=== PATIENT | female | born 1980 | race Hispanic/Latino ===

== ENCOUNTER 2020-11-06 12:15 | Outpatient (CLI) | payer BC ==
[~2020-11-06 12:15] MED LIST: Magnevist 469MG/ML 20 ML VIAL ONE
== END 2020-11-06 12:16 | disposition home or self-care (01) ==
LOC: BICMRI 12:15
PROVIDERS: ATTEND Psychiatry & Neurology Neurology
DX: R20.2 Paresthesia of skin (principal)
CPT/HCPCS: 70553; 72141

== ENCOUNTER 2021-11-23 15:24 | Outpatient (CLI) | payer BC | END 2021-11-23 15:25 | disposition home or self-care (01) | LOC: BICULT 15:24 | PROVIDERS: ATTEND Urology | DX: R10.9 Unspecified abdominal pain (principal) | CPT/HCPCS: 76770 ==

== ENCOUNTER 2022-03-12 12:29 | Outpatient (CLI) | payer BC ==
[~2022-03-12 12:29] MED LIST changes: +Iopamidol 370 76% 100 ML VIAL ONE; -Magnevist 469MG/ML 20 ML VIAL ONE
== END 2022-03-12 12:30 | disposition home or self-care (01) ==
LOC: BICCT 12:29
PROVIDERS: ATTEND Nurse Practitioner Family
DX: R10.31 Right lower quadrant pain (principal)
CPT/HCPCS: 74178; Q9967

== ENCOUNTER 2022-12-23 17:00 | Outpatient (CLI) | payer BC | END 2022-12-23 17:01 | disposition home or self-care (01) | LOC: SLEEPLAB 17:00 | PROVIDERS: ATTEND Nurse Practitioner Family | DX: G47.33 Obstructive sleep apnea (adult) (pediatric) (principal); R53.83 Other fatigue; R06.83 Snoring | CPT/HCPCS: 95800 ==

== ENCOUNTER 2023-02-12 11:16 | Outpatient (CLI) | payer BC ==
[2023-02-12 13:28] LABS: Bilirubin Neg (Negative); Blood, Urine Negative (Negative); Clarity Clear (Clear); Glucose, Urine (Dipstick) Normal (Negative); Ketone, Urine 5 mg/dL (Negative); Leukocyte Negative (Negative); Nitrite Negative (Negative); Protein, Urine (Dipstick) Negative (Neg-Trace); Specific Gravity, Urine 1.015 (1.005-1.030); Urobilinogen Normal mg/dL (Less than 2)
[2023-02-12 13:34] LABS: Hematocrit 41.1 % (34.9-44.5); Hemoglobin 13.5 g/dL (12.0-15.5); Mean Corpuscular HGB CONC 32.8 g/dL (32.0-36.0); Mean Corpuscular Hemoglobin 29.4 pg (27.0-33.0); Mean Corpuscular Volume 89.5 fl (81.6-98.3); Mean Platelet Volume 8.6 fl (7.4-10.4); Platelet Count 512 10x3/uL (150-450); RBC Distribution Width 13.8 % (11.5-14.5); Red Blood Cell (RBC) Count 4.59 10x6/uL (3.90-5.03); White Blood Cell (WBC) Count 7.4 10x3/uL (3.5-10.5)
[2023-02-12 13:43] LABS: INR-International Normal Ratio 0.9; PTT 28.6 sec (22.0-33.0)
[2023-02-12 13:49] LABS: Anion Gap 11 mmol/L (10-20); BUN (Urea Nitrogen) 9 mg/dL (7.0-18.7); Calc. Creatinine Clearance 0 mL/min (70-130); Calcium 9.1 mg/dL (7.8-10.44); Carbon Dioxide 26 mmol/L (22-29); Chloride 103 mmol/L (98-107); Estimated GFR 109; Glucose 86 mg/dL (70-105); Potassium 3.9 mmol/L (3.5-5.1); Sodium 136 mmol/L (136-145)
[2023-02-12 13:54] LABS: Bacteria/HPF Rare-Few HPF (None Seen); Mucous/LPF Rare LPF (<2+); RBC/HPF None Seen HPF (0-3); Squamous Epithelial 0-3 HPF (0-3); WBC/HPF 0-3 HPF (0-3)
== END 2023-02-12 11:17 | disposition home or self-care (01) ==
LOC: LABBT 11:16
PROVIDERS: ATTEND Urology
DX: Z01.818 Encounter for other preprocedural examination (principal); N39.46 Mixed incontinence; N35.92 Unspecified urethral stricture, female; R35.1 Nocturia
CPT/HCPCS: 71046; 80048; 81001; 85027; 85610; 85730; 87086; 93005; 93010

== ENCOUNTER 2023-02-26 06:51 | Day surgery (SDC) | payer BC ==
[2023-02-25 10:10] VITALS: BMI 25.8
[2023-02-26] MEDS ORDERED: LevoFLOXacin D5W 500 mg (100 mL) BAG ONE (07:50)
[2023-02-26] MEDS ORDERED: Midazolam HCl 2 mg/2 ml Vial ONE (08:24)
[2023-02-26] MEDS ORDERED: PROPOFOL 20 ML ONE (08:24)
[2023-02-26] MEDS ORDERED: fentaNYL 50 mcg/mL 1 mL Vial ONE (08:24)
[2023-02-26] MEDS ORDERED: Ondansetron PF 4 MG/2 ML Vial ONE (08:54)
[2023-02-26] MEDS ORDERED: Dexamethasone 4 mg/ml Vial ONE (08:54)
[2023-02-26] MEDS ORDERED: PHENYLEPHRINE-NS 100 MCG/ML 10 ML SYRINGE ONE (08:56)
[2023-02-26] MEDS ORDERED: Phenazopyridine HCl 100 MG TAB ONE ×2 (09:56→09:57)
== END 2023-02-26 11:36 | disposition home or self-care (01) ==
LOC: SDC 06:51
PROVIDERS: ATTEND Urology
PROC: 0TVC8ZZ Restriction of Bladder Neck, Via Natural or Artificial Opening Endoscopic (ICD-10-PCS; principal; 2023-02-26)
DX: N39.46 Mixed incontinence (principal); N81.10 Cystocele, unspecified; Z88.2 Allergy status to sulfonamides; Z88.8 Allergy status to other drugs, medicaments and biological substances
CPT/HCPCS: J1100; J1956; J2250; J2405; J2704; J3010; L8606

== ENCOUNTER 2023-03-03 16:00 | Outpatient (CLI) | payer BC | END 2023-03-03 16:01 | disposition home or self-care (01) | LOC: SLEEPLAB 16:00 | PROVIDERS: ATTEND Nurse Practitioner Family | DX: G47.33 Obstructive sleep apnea (adult) (pediatric) (principal); R53.83 Other fatigue; R06.83 Snoring; G47.10 Hypersomnia, unspecified; R00.2 Palpitations; G47.00 Insomnia, unspecified | CPT/HCPCS: 95810 ==

== ENCOUNTER 2024-12-07 07:54 | Outpatient (CLI) | payer BC | END 2024-12-07 07:55 | disposition home or self-care (01) | LOC: CT 07:54 | PROVIDERS: ATTEND Nurse Practitioner Family | DX: R10.A1 Flank pain, right side (principal); K63.89 Other specified diseases of intestine | CPT/HCPCS: 74176 ==